=== PATIENT | male | born 1970 ===

== ENCOUNTER 2020-06-18 10:10 | Emergency (ER) | payer OTHER ==
[~2020-06-18] VITALS: Ht 170.2 cm; Wt 74.8 kg
[2020-06-18] MEDS ORDERED: PEPCID AC20 MG PO (15:14)
== END 2020-06-18 15:49 ==
LOC: ER 10:10
DX: K29.60 Other gastritis without bleeding (principal); R07.89 Other chest pain

== ENCOUNTER 2021-05-03 06:56 | Emergency (ER) | payer OTHER ==
[~2021-05-03] VITALS: Ht 170.2 cm; Wt 74.8 kg
[~2021-05-03 06:56] MED LIST: PEPCID AC20 MG PO
== END 2021-05-03 12:45 | disposition home or self-care (01) ==
LOC: ER 06:56
DX: M54.9 Dorsalgia, unspecified (principal)

== ENCOUNTER → 2021-06-11 | Emergency (ER) | payer OTHER ==
[~2021-06-11] VITALS: Ht 167.6 cm; Wt 71.2 kg
== END | disposition left against medical advice (07) ==
LOC: ER 14:18